=== PATIENT | female | born 1965 | race Two or more races ===

== ENCOUNTER 2018-06-06 15:29 | Emergency (ER) | payer MEDICAID ==
[~2018-06-06] VITALS: Ht 165.1 cm; Wt 68.0 kg
[2018-06-06] MEDS ORDERED: LORAZEPAM 1MG TABLET PO ONE (17:15)
[2018-06-06 18:15] VITALS: BP 170/85
== END 2018-06-06 18:18 | disposition home or self-care (01) ==
LOC: ER 15:29
DX: F41.9 Anxiety disorder, unspecified (principal); E78.00 Pure hypercholesterolemia, unspecified; I10 Essential (primary) hypertension
CPT/HCPCS: 99282; 99284

== ENCOUNTER 2018-06-26 01:40 | Emergency (ER) | payer MEDICAID ==
[~2018-06-26] VITALS: Ht 154.9 cm; Wt 69.0 kg
[2018-06-26 03:39] LABS: BASOPHILS % 0.2 % (0.0-2.0); CHLORIDE 107 mEq/L (98-107); EOSINOPHILS % 0.5 % (0.0-5.0); HEMATOCRIT. 37.8 % (36.0-48.0); HEMOGLOBIN. 13.2 g/dL (12.0-16.0); LYMPHOCYTES % 23.2 % (20.0-50.0); MEAN CORPUSCULAR HEMOGLOBIN 32.2 pg (28.0-32.0); MEAN CORPUSCULAR VOLUME 92.4 fL (81.0-99.0); MEAN PLATELET VOLUME 9.2 fl (7.4-10.4); MONOCYTES % 5.2 % (2.0-8.0); NEUTROPHILS % 70.9 % (40.0-76.0); PLATELET 192 x1000/uL (130-400); RED BLOOD CELL COUNT 4.09 mill/uL (4.2-5.4); RED CELL DISTRIBUTION WIDTH 12.4 % (11.6-14.6)
[2018-06-26 03:42] LABS: PROTHROMBIN TIME 9.9 sec (9.6-11.0)
[2018-06-26] MEDS ORDERED: ASPIRIN 81MG TABLET PO ONE (05:15)
[2018-06-26 06:10] VITALS: BP 120/74
== END 2018-06-26 06:58 | disposition home or self-care (01) ==
LOC: ER 01:40
DX: F41.9 Anxiety disorder, unspecified (principal); R51 Headache
CPT/HCPCS: 36415; 71045; 80053; 83880; 84484; 85025; 85610; 93005; 99284; Z7610

== ENCOUNTER 2021-01-16 06:12 | Emergency (ER) | payer MEDICAID ==
[~2021-01-16] VITALS: Ht 170.2 cm; Wt 73.0 kg
[2021-01-16] MEDS ORDERED: ACETAMINOPHEN WITH CODEINE 300/30MG TABLET PO STA (06:57)
[2021-01-16 08:08] LABS: CLARITY URINE TURBID (CLEAR); COLOR URINE RED (YELLOW); KETONES URINE 1+ (NEGATIVE); LEUKOCYTE ESTERASE URINE 3+ (NEGATIVE); NITRITE URINE NEGATIVE (NEGATIVE); OCCULT BLOOD URINE 3+ (NEGATIVE); PH URINE 5.5 (4.5-8.0); PROTEIN URINE 3+ (NEGATIVE); SPECIFIC GRAVITY URINE 1.021 (1.005-1.030)
[2021-01-16] MEDS ORDERED: LEVOFLOXACIN 250MG TABLET PO ONE (08:30)
[2021-01-16] MEDS ORDERED: TOPUD PO (08:32)
[2021-01-16] MEDS ORDERED: PHEN-815 PO (08:32)
[2021-01-16] MEDS ORDERED: LEVO250T58 PO (08:32)
[2021-01-16 08:50] VITALS: BP 139/86
== END 2021-01-16 08:51 | disposition home or self-care (01) ==
LOC: ER 06:41
DX: N39.0 Urinary tract infection, site not specified (principal); B96.20 Unspecified Escherichia coli [E. coli] as the cause of diseases classified elsewhere; I10 Essential (primary) hypertension; E78.00 Pure hypercholesterolemia, unspecified
CPT/HCPCS: 81003; 87077; 87186; 93005; 99284

== ENCOUNTER 2021-05-06 12:15 | Emergency (ER) | payer OTHER, MEDICAID ==
[~2021-05-06] VITALS: Ht 162.6 cm; Wt 77.0 kg
[~2021-05-06 12:15] MED LIST: LEVO250T58 PO; PHEN-815 PO; TOPUD PO
[2021-05-06 13:52] LABS: BASOPHILS % 0.3 % (0.0-2.0); EOSINOPHILS % 0.8 % (0.0-5.0); HEMATOCRIT. 40.7 % (36.0-48.0); HEMOGLOBIN. 13.9 g/dL (12.0-16.0); MEAN CORPUSCULAR HEMOGLOBIN 31.9 pg (28.0-32.0); MEAN CORPUSCULAR VOLUME 93.3 fL (81.0-99.0); MEAN PLATELET VOLUME 9.1 fl (7.4-10.4); MONOCYTES % 7.6 % (2.0-8.0); NEUTROPHILS % 66.3 % (40.0-76.0); PLATELET 188 x1000/uL (130-400); RED BLOOD CELL COUNT 4.36 mill/uL (4.2-5.4); RED CELL DISTRIBUTION WIDTH 12.6 % (11.6-14.6)
[2021-05-06 13:58] LABS: CHLORIDE 110 mEq/L (98-107)
[2021-05-06 15:47] VITALS: BP 140/75
== END 2021-05-06 17:29 | disposition home or self-care (01) ==
LOC: ER 14:45
DX: R07.89 Other chest pain (principal); I10 Essential (primary) hypertension; E78.00 Pure hypercholesterolemia, unspecified; Z87.442 Personal history of urinary calculi
CPT/HCPCS: 36415; 71045; 80053; 83880; 84484; 85025; 93005; 99285

== ENCOUNTER 2022-08-02 20:39 | Emergency (ER) | payer OTHER, MEDICAID ==
[~2022-08-02] VITALS: Ht 157.5 cm; Wt 73.0 kg
[~2022-08-02 20:39] MED LIST changes: -LEVO250T58 PO; +LEVO250T74 PO
[2022-08-02] MEDS ORDERED: IBUPROFEN 400MG TABLET PO ONE (22:30)
[2022-08-02] MEDS ORDERED: ACETAMINOPHEN 325MG TABLET PO ONE (22:30)
[2022-08-02] MEDS ORDERED: OFLO5DRO4 LEFT EAR (22:47)
[2022-08-02 22:48] VITALS: BP 165/87
[2022-08-02] MEDS ORDERED: ACET-2708 MT (22:52)
== END 2022-08-02 23:09 | disposition home or self-care (01) ==
LOC: ER 20:39
DX: H60.92 Unspecified otitis externa, left ear (principal); I10 Essential (primary) hypertension
CPT/HCPCS: 99283

== ENCOUNTER 2023-03-03 13:01 | Emergency (ER) | payer OTHER, MEDICAID ==
[~2023-03-03] VITALS: Ht 162.6 cm; Wt 77.0 kg
[~2023-03-03 13:01] MED LIST changes: +ACET-2708 MT; +OFLO5DRO4 LEFT EAR
[2023-03-03 13:34] VITALS: O2SAT 100
[2023-03-03] MEDS ORDERED: KETOROLAC 60MG/2ML VIAL IM ONE (16:15)
[2023-03-03 16:21] VITALS: BP 146/61; PULSE 70; RESP 18; TEMP 98.3
[2023-03-03] MEDS ORDERED: TOPUD MT (16:33)
[2023-03-03] MEDS ORDERED: IBUP-2028 MT (16:33)
[2023-03-03] MEDS ORDERED: CYCL5TAB MT (16:33)
[2023-03-03] MEDS ORDERED: LIDO700A15 TP (16:33)
== END 2023-03-03 16:51 | disposition home or self-care (01) ==
LOC: ER 13:01
DX: M75.102 Unspecified rotator cuff tear or rupture of left shoulder, not specified as traumatic (principal); E78.00 Pure hypercholesterolemia, unspecified; I10 Essential (primary) hypertension; Z79.899 Other long term (current) drug therapy
CPT/HCPCS: 99283; 73030; 96372; J1885